=== PATIENT | male | born 1955 | race Two or more races ===

== ENCOUNTER 2018-05-23 10:47 | Emergency (ER) | payer OTHER ==
[~2018-05-23] VITALS: Ht 157.5 cm; Wt 108.0 kg
[~2018-05-23 10:47] MED LIST: AMOX1TAB12 PO; CLEOCIN HCL300 MG PO; SILVADENE50 GM TP
== END 2018-05-23 13:20 | disposition home or self-care (01) ==
LOC: ER 10:47
DX: M17.0 Bilateral primary osteoarthritis of knee (principal); M25.562 Pain in left knee; M25.561 Pain in right knee

== ENCOUNTER → 2019-02-14 | Emergency (ER) | payer OTHER ==
[~2019-02-14] VITALS: Ht 170.2 cm; Wt 99.8 kg
[~2019-02-14] MED LIST changes: +DITROPAN XL10 MG PO
== END | disposition designated cancer center or children's hospital (05) ==
LOC: ER 10:46
DX: I63.89 Other cerebral infarction (principal)

== ENCOUNTER 2019-09-24 12:00 | Emergency (ER) | payer OTHER ==
[~2019-09-24] VITALS: Ht 152.4 cm; Wt 111.1 kg
== END 2019-09-24 21:17 | disposition home or self-care (01) ==
LOC: ER 12:00
DX: S90.512A Abrasion, left ankle, initial encounter (principal); W54.0XXA Bitten by dog, initial encounter; Y93.89 Activity, other specified; Y92.89 Other specified places as the place of occurrence of the external cause; Y99.8 Other external cause status; I16.0 Hypertensive urgency; I10 Essential (primary) hypertension